=== PATIENT | female | born 1965 | race Caucasian/White ===

== ENCOUNTER 2016-06-07 16:03 | Inpatient (IN) | payer MEDICARE, MEDICAID ==
[~2016-06-07] VITALS: Ht 170.2 cm; Wt 87.5 kg
[2016-06-07] VITALS (174 sets, daily range): BP systolic 96–128; BP diastolic 66–79; PULSE 79–93; TEMP 96.2–97; O2SAT 80–100
[~2016-06-07 16:03] MED LIST: ALESSE PO; AMOXICILLIN 8751 TAB PO; CELEXA40 MG PO; FIBERCON; NAPROSYN500 MG PO; NEXIUM 40MG40 MG PO; NORCO 325 MG-51 TAB PO; OYSTER CAL 500500 MG PO; VALIUM 2MG T2 MG/TAB PO; VITAMIN B11000 MCG/M IM
[2016-06-07 17:17] LABS: MEAN CELL VOLUME 94 fl (80.0-100.0); MEAN CORPUSCULAR HGB CONC 32 g/dl (33.0-37.0); MEAN PLATELET VOLUME 13.4 fl (7.4-10.4); RED BLOOD COUNT 3.92 M/mm3 (4.10-5.30); REDCELL DISTRIBUTION WIDTH-CV 13.1 % (11.5-14.5); WHITE BLOOD COUNT 5.5 K/mm3 (4.8-10.8)
[2016-06-07 17:19] LABS: PROTHROMBIN TIME 11.2 SECONDS (9.7-12.8)
[2016-06-07 17:22] LABS: ADD PATHOLOGY DIFF REVIEW NO; HEMATOCRIT 36.7 % (37.0-47.0); HEMOGLOBIN 11.7 g/dl (12.5-16.0); MEAN CORPUSCULAR HEMOGLOBIN 30 pg (27.0-31.0)
[2016-06-07 17:37] LABS: BAND 38 % (0-10); METAMYELOCYTE 1 % (0-0); NEUTROPHILS 52 % (42.0-75.2); PLATELET ESTIMATE DECREASED (NORMAL); TOTAL CELLS COUNTED 100
[2016-06-07 17:39] LABS: ADJUSTED CALCIUM 9.7 mg/dL (8.4-10.2); ALANINE AMINOTRANSFERASE 92 U/L (9-52); ALBUMIN 3.6 gm/dL (3.5-5.0); ALKALINE PHOSPHATASE 71 U/L (50-136); ANION GAP 6 mmol/L (7-16); BILIRUBIN,TOTAL 0.5 mg/dL (0.0-1.0); BLOOD UREA NITROGEN 31 mg/dL (7-17); CALCIUM 9.4 mg/dL (8.4-10.2); CARBON DIOXIDE 26 mmol/L (22-30); CHLORIDE 109 mmol/L (98-107); CREATININE, serum 0.79 mg/dL (0.52-1.25); GLUCOSE 138 mg/dL (74-106); LIPASE 156 U/L (23-300); POTASSIUM 5.5 mmol/L (3.4-5.0); SODIUM 140 mmol/L (137-145); TOTAL PROTEIN 7.1 gm/dL (6.4-8.2)
[2016-06-07 17:42] LABS: PLATELET COUNT 66 K/mm3 (130-400)
[2016-06-07 18:01] LABS: TROPONIN-I < 0.012 ng/mL (0.000-0.034)
[2016-06-07 18:15] LABS: PH 6 (5-8); URINE APPEARANCE Hazy; URINE BACTERIA None Seen /hpf; URINE BILIRUBIN Negative (NEGATIVE); URINE BLOOD Negative (NEGATIVE); URINE COLOR Yellow; URINE GLUCOSE Negative (NEGATIVE); URINE KETONE Negative (NEGATIVE); URINE RBC 0-2 /hpf; URINE UROBILINOGEN Negative (NEGATIVE); URINE WBC 0-2 /hpf
[2016-06-07] MEDS ORDERED: SRONYX 0.02 MG-1 TAB PO (21:08)
[2016-06-07] MEDS ORDERED: CELEXA40 MG PO (21:09)
[2016-06-07] MEDS ORDERED: TEGRETOL 1100 MG/TAB PO (21:09)
[2016-06-07] MEDS ORDERED: NEXIUM 40MG40 MG PO (21:10)
[2016-06-07] MEDS ORDERED: FIBERCON (21:10)
[2016-06-07] MEDS ORDERED: RISPERDAL 0.5M0.5 MG PO (21:11)
[2016-06-07] MEDS ORDERED: VALIUM 2MG T2 MG/TAB PO (21:11)
[2016-06-07] MEDS ORDERED: CALCIUM-500 5001 CTB PO (21:11)
[2016-06-07] MEDS ORDERED: SENNA-LAX8.6 MG PO (21:12)
[2016-06-07] MEDS ORDERED: CYANOCOBAL1000 MCG/1 IM (21:13)
[2016-06-07] MEDS ORDERED: MEDROL 4MG DOSPA4 MG PO (21:18)
[2016-06-07 22:39] LABS: CREATINE KINASE 78 U/L (30-135)
[2016-06-08] VITALS (1417 sets, daily range): BP systolic 110–120; BP diastolic 69–97; PULSE 64–92; TEMP 96.7–97.1; O2SAT 80–100
[2016-06-08 05:36] LABS: MEAN CELL VOLUME 95 fl (80.0-100.0); MEAN CORPUSCULAR HGB CONC 32 g/dl (33.0-37.0); MEAN PLATELET VOLUME 13.2 fl (7.4-10.4); PLATELET COUNT 78 K/mm3 (130-400); RED BLOOD COUNT 3.68 M/mm3 (4.10-5.30); REDCELL DISTRIBUTION WIDTH-CV 13.1 % (11.5-14.5); WHITE BLOOD COUNT 4.9 K/mm3 (4.8-10.8)
[2016-06-08 05:43] LABS: HEMATOCRIT 34.8 % (37.0-47.0); HEMOGLOBIN 11.1 g/dl (12.5-16.0); MEAN CORPUSCULAR HEMOGLOBIN 30 pg (27.0-31.0)
[2016-06-08 05:50] LABS: CALCIUM 9.2 mg/dL (8.4-10.2); CREATININE, serum 0.9 mg/dL (0.52-1.25); POTASSIUM 4.9 mmol/L (3.4-5.0)
[2016-06-08 13:18] LABS: ADD PATHOLOGY DIFF REVIEW NO
[2016-06-08 13:43] LABS: MEAN CELL VOLUME 95 fl (80.0-100.0); MEAN CORPUSCULAR HGB CONC 31 g/dl (33.0-37.0); MEAN PLATELET VOLUME 13.5 fl (7.4-10.4); RED BLOOD COUNT 3.49 M/mm3 (4.10-5.30); WHITE BLOOD COUNT 5.1 K/mm3 (4.8-10.8)
[2016-06-08 13:47] LABS: HEMATOCRIT 33.3 % (37.0-47.0); HEMOGLOBIN 10.4 g/dl (12.5-16.0); MEAN CORPUSCULAR HEMOGLOBIN 30 pg (27.0-31.0)
[2016-06-08 13:48] LABS: PLATELET COUNT 70 K/mm3 (130-400)
[2016-06-08 14:04] LABS: BAND 1 % (0-10); EOSINOPHIL 2 % (0-4); NEUTROPHILS 72 % (42.0-75.2); TOTAL CELLS COUNTED 100
[2016-06-08 14:05] LABS: ANISOCYTOSIS 1+
[2016-06-09] VITALS (1011 sets, daily range): BP systolic 105–119; BP diastolic 67–87; PULSE 66–74; TEMP 96.8–98.6; O2SAT 78–100
[2016-06-09 09:59] LABS: BASO % 0.3 % (0.0-2.0); EOS # 0.1 (0.0-0.7); EOS % 4.4 % (0-4.0); GRAN # 1.9 (1.4-6.5); GRAN % 60.3 % (42.2-75.2); LYMPH # 0.9 (1.2-3.4); LYMPH % 28.8 % (20.0-51.0); MEAN CELL VOLUME 96 fl (80.0-100.0); MEAN CORPUSCULAR HGB CONC 31 g/dl (33.0-37.0); MEAN PLATELET VOLUME 13.2 fl (7.4-10.4); MONO # 0.2 (0.1-0.6); MONO % 5.9 % (1.7-9.3); RED BLOOD COUNT 3.31 M/mm3 (4.10-5.30); REDCELL DISTRIBUTION WIDTH-CV 13.1 % (11.5-14.5); WHITE BLOOD COUNT 3.2 K/mm3 (4.8-10.8)
[2016-06-09 10:07] LABS: HEMATOCRIT 31.9 % (37.0-47.0); HEMOGLOBIN 9.9 g/dl (12.5-16.0); MEAN CORPUSCULAR HEMOGLOBIN 30 pg (27.0-31.0); PLATELET COUNT 58 K/mm3 (130-400)
[2016-06-09 10:21] LABS: ADJUSTED CALCIUM 9.9 mg/dL (8.4-10.2); ALBUMIN 2.9 gm/dL (3.5-5.0); BILIRUBIN,TOTAL 0.4 mg/dL (0.0-1.0); CREATININE, serum 1.09 mg/dL (0.52-1.25); POTASSIUM 5.2 mmol/L (3.4-5.0)
[2016-06-10 01:03] VITALS: BP 116/68; PULSE 54; TEMP 98.2
[2016-06-10 03:16] VITALS: BP 118/52; PULSE 50; TEMP 98.6
[2016-06-10 09:13] VITALS: BP 127/75; PULSE 53; TEMP 94
[2016-06-10 09:38] LABS: BASO % 0.3 % (0.0-2.0); EOS # 0.1 (0.0-0.7); EOS % 3.8 % (0-4.0); GRAN # 2.4 (1.4-6.5); GRAN % 65.7 % (42.2-75.2); LYMPH # 0.9 (1.2-3.4); LYMPH % 23.9 % (20.0-51.0); MEAN CELL VOLUME 96 fl (80.0-100.0); MEAN CORPUSCULAR HGB CONC 31 g/dl (33.0-37.0); MEAN PLATELET VOLUME 13.3 fl (7.4-10.4); MONO # 0.2 (0.1-0.6); RED BLOOD COUNT 3.26 M/mm3 (4.10-5.30); REDCELL DISTRIBUTION WIDTH-CV 13.1 % (11.5-14.5); WHITE BLOOD COUNT 3.7 K/mm3 (4.8-10.8)
[2016-06-10 09:43] LABS: HEMATOCRIT 31.4 % (37.0-47.0); HEMOGLOBIN 9.8 g/dl (12.5-16.0); MEAN CORPUSCULAR HEMOGLOBIN 30 pg (27.0-31.0); PLATELET COUNT 48 K/mm3 (130-400)
[2016-06-10 10:20] LABS: ALBUMIN 3.3 gm/dL (3.5-5.0); BILIRUBIN,TOTAL 0.3 mg/dL (0.0-1.0); CALCIUM 9.4 mg/dL (8.4-10.2); CREATININE, serum 1.04 mg/dL (0.52-1.25); POTASSIUM 5.2 mmol/L (3.4-5.0); TOTAL PROTEIN 6.2 gm/dL (6.4-8.2)
[2016-06-10 12:51] VITALS: BP 154/95; PULSE 56; TEMP 94
[2016-06-10 16:28] VITALS: BP 147/94; PULSE 58; TEMP 94
[2016-06-10 20:43] VITALS: BP 108/62; PULSE 50; TEMP 98.8
[2016-06-11 04:52] VITALS: BP 115/74; PULSE 74; TEMP 97.7
[2016-06-11 07:36] VITALS: BP 148/88; PULSE 43; TEMP 94
[2016-06-11 09:15] LABS: BASO % 0.2 % (0.0-2.0); EOS # 0.2 (0.0-0.7); EOS % 4.7 % (0-4.0); GRAN % 67.7 % (42.2-75.2); LYMPH % 22.3 % (20.0-51.0); MEAN CELL VOLUME 92 fl (80.0-100.0); MEAN CORPUSCULAR HGB CONC 33 g/dl (33.0-37.0); MEAN PLATELET VOLUME 13.8 fl (7.4-10.4); MONO # 0.2 (0.1-0.6); MONO % 4.9 % (1.7-9.3); RED BLOOD COUNT 3.56 M/mm3 (4.10-5.30); WHITE BLOOD COUNT 4.5 K/mm3 (4.8-10.8)
[2016-06-11 09:23] LABS: HEMATOCRIT 32.8 % (37.0-47.0); HEMOGLOBIN 10.7 g/dl (12.5-16.0); MEAN CORPUSCULAR HEMOGLOBIN 30 pg (27.0-31.0)
[2016-06-11 09:25] LABS: PLATELET COUNT 49 K/mm3 (130-400)
[2016-06-11 09:28] LABS: CALCIUM 9.8 mg/dL (8.4-10.2); CREATININE, serum 1.05 mg/dL (0.52-1.25); POTASSIUM 5.2 mmol/L (3.4-5.0)
[2016-06-11 12:05] VITALS: BP 123/81; PULSE 35; TEMP 93
[2016-06-11 16:47] VITALS: BP 98/53; PULSE 42; TEMP 92
[2016-06-12 00:35] VITALS: BP 107/59; PULSE 64
[2016-06-12 03:44] VITALS: BP 131/86; PULSE 50
[2016-06-12 07:39] VITALS: BP 149/75; PULSE 55; TEMP 94
[2016-06-12 10:52] LABS: MEAN CELL VOLUME 93 fl (80.0-100.0); MEAN CORPUSCULAR HGB CONC 32 g/dl (33.0-37.0); MEAN PLATELET VOLUME 13.3 fl (7.4-10.4); RED BLOOD COUNT 3.43 M/mm3 (4.10-5.30); REDCELL DISTRIBUTION WIDTH-CV 13.2 % (11.5-14.5); WHITE BLOOD COUNT 4.7 K/mm3 (4.8-10.8)
[2016-06-12 10:56] LABS: CALCIUM 9.5 mg/dL (8.4-10.2); CREATININE, serum 0.87 mg/dL (0.52-1.25); POTASSIUM 5.1 mmol/L (3.4-5.0)
[2016-06-12 10:57] LABS: ALBUMIN FRACTION 3.3 g/dL (2.6-4.5); ALBUMIN PERCENTAGE 53.2 % (48.7-61.8); ALPHA 1 FRACTION 0.4 g/dL (0.3-0.5); ALPHA 1 PERCENTAGE 6.1 % (3.4-8.3); ALPHA 2 FRACTION 0.7 g/dL (0.6-1.2); ALPHA 2 PERCENTAGE 11.8 % (8.4-17.5); BETA 1 FRACTION 0.4 g/dL (0.4-0.6); BETA 1 PERCENTAGE 6.3 % (5.4-8.9); BETA 2 FRACTION 0.3 g/dL (0.2-0.5); BETA 2 PERCENTAGE 4.5 % (3.8-7.7); GAMMA FRACTION 1.1 g/dL (0.4-1.7); GAMMA PERCENTAGE 18.1 % (8.1-23.0); SERUM PROTEIN TOTAL 6.2 g/dL (6.1-7.7)
[2016-06-12 11:32] LABS: HEMATOCRIT 31.9 % (37.0-47.0); HEMOGLOBIN 10.2 g/dl (12.5-16.0); MEAN CORPUSCULAR HEMOGLOBIN 30 pg (27.0-31.0)
[2016-06-12 11:33] LABS: ADD PATHOLOGY DIFF REVIEW NO
[2016-06-12 11:50] VITALS: BP 130/77; PULSE 53; TEMP 94
[2016-06-12 12:47] LABS: BAND 11 % (0-10); BASOPHIL 2 % (0-2); NEUTROPHILS 53 % (42.0-75.2); PLATELET ESTIMATE DECREASED (NORMAL); TOTAL CELLS COUNTED 100
[2016-06-12 12:53] LABS: PLATELET COUNT 47 K/mm3 (130-400)
[2016-06-12] MEDS ORDERED: FOLIC ACID 11 MG/TA1 PO (14:18)
[2016-06-12] MEDS ORDERED: LEVOXYL0.05 MG PO (14:18)
[2016-06-13 18:15] LABS: KAPPA FREE LIGHT CHAIN-SERUM 7.71 mg/dL (()); KAPPA LAMBDA RATIO 2.15 (())
== END 2016-06-12 15:38 | disposition home or self-care (01) | DRG 866 ==
LOC: COL.ER 16:03 → MEDICAL 18:39 → ICU 18:39 → MEDICAL 06-09 18:27
PROVIDERS: Emergency Medicine; Internal Medicine
DX: B34.9 Viral infection, unspecified (principal); D61.818 Other pancytopenia; G93.1 Anoxic brain damage, not elsewhere classified; R68.0 Hypothermia, not associated with low environmental temperature; Z87.820 Personal history of traumatic brain injury; E87.5 Hyperkalemia; E86.0 Dehydration; F31.9 Bipolar disorder, unspecified; D64.9 Anemia, unspecified; D69.6 Thrombocytopenia, unspecified; E03.9 Hypothyroidism, unspecified
CPT/HCPCS: 99223-AI; 99232-AI; 99233-AI; 99239; C9113; J0610; J0692; J1650; J1720; J1815; J3370; J7030; J7050; J7120

== ENCOUNTER 2016-06-12 22:33 | Inpatient (IN) | payer MEDICARE, MEDICAID ==
[~2016-06-12] VITALS: Ht 165.1 cm; Wt 75.0 kg
[~2016-06-12 22:33] MED LIST changes: +CALCIUM-500 5001 CTB PO; +CYANOCOBAL1000 MCG/1 IM; +FOLIC ACID 11 MG/TA1 PO; +LEVOXYL0.05 MG PO; +MEDROL 4MG DOSPA4 MG PO; +RISPERDAL 0.5M0.5 MG PO; +SENNA-LAX8.6 MG PO; +SRONYX 0.02 MG-1 TAB PO; +TEGRETOL 1100 MG/TAB PO
[2016-06-12 23:47] LABS: BASO % 0.4 % (0.0-2.0); EOS # 0.3 (0.0-0.7); EOS % 6.5 % (0-4.0); GRAN # 3.7 (1.4-6.5); GRAN % 72.4 % (42.2-75.2); LYMPH # 0.7 (1.2-3.4); LYMPH % 13.4 % (20.0-51.0); MEAN CELL VOLUME 93 fl (80.0-100.0); MEAN CORPUSCULAR HGB CONC 32 g/dl (33.0-37.0); MEAN PLATELET VOLUME 14.2 fl (7.4-10.4); MONO # 0.4 (0.1-0.6); MONO % 7.1 % (1.7-9.3); RED BLOOD COUNT 3.49 M/mm3 (4.10-5.30); WHITE BLOOD COUNT 5.1 K/mm3 (4.8-10.8)
[2016-06-12 23:48] LABS: HEMATOCRIT 32.4 % (37.0-47.0); HEMOGLOBIN 10.4 g/dl (12.5-16.0); MEAN CORPUSCULAR HEMOGLOBIN 30 pg (27.0-31.0); PLATELET COUNT 54 K/mm3 (130-400)
[2016-06-12 23:59] LABS: ADJUSTED CALCIUM 9.8 mg/dL (8.4-10.2); ALBUMIN 3.7 gm/dL (3.5-5.0); BILIRUBIN,TOTAL 0.6 mg/dL (0.0-1.0); CALCIUM 9.6 mg/dL (8.4-10.2); CREATININE, serum 0.84 mg/dL (0.52-1.25); TOTAL PROTEIN 7.2 gm/dL (6.4-8.2)
[2016-06-13] VITALS (189 sets, daily range): BP systolic 119; BP diastolic 67; PULSE 59; TEMP 96.1; O2SAT 75–100
[2016-06-13 00:01] LABS: POTASSIUM 6.6 mmol/L (3.4-5.0)
[2016-06-13 00:29] LABS: THYROID STIMULATING HORMONE 20.4 uIU/mL (0.465-4.680)
[2016-06-13 02:51] LABS: ARTERIAL BLD GAS O2 SATURATION 95.7 % (92-100); ARTERIAL BLD GAS TCO2 CT 26.5; ARTERIAL BLOOD GAS BASE EXCESS -1.2 (-2-2); ARTERIAL BLOOD GAS PHT 7.32 C (7.35-7.45); ARTERIAL BLOOD GAS PO2 91.6 mmHg (80-100); ARTERIAL BLOOD GAS PO2T 91.6 (80-100); ARTERIAL BLOOD GAS pH 7.32 (7.35-7.45); OXYHEMOGLOBIN 94.9 %
[2016-06-13 02:52] LABS: ALLEN TEST NO; ATS? YES
[2016-06-13 03:16] LABS: BASO % 0.3 % (0.0-2.0); EOS # 0.3 (0.0-0.7); EOS % 7.5 % (0-4.0); GRAN # 2.7 (1.4-6.5); LYMPH # 0.7 (1.2-3.4); LYMPH % 17.2 % (20.0-51.0); MEAN CELL VOLUME 93 fl (80.0-100.0); MEAN CORPUSCULAR HGB CONC 32 g/dl (33.0-37.0); MEAN PLATELET VOLUME 13.4 fl (7.4-10.4); MONO # 0.2 (0.1-0.6); MONO % 5.7 % (1.7-9.3); RED BLOOD COUNT 3.14 M/mm3 (4.10-5.30); WHITE BLOOD COUNT 3.9 K/mm3 (4.8-10.8)
[2016-06-13 03:23] LABS: PROTHROMBIN TIME 11.4 SECONDS (9.7-12.8)
[2016-06-13 03:25] LABS: PARTIAL THROMBOPLASTIN TIME 35.6 SECONDS (26.0-37.0)
[2016-06-13 03:27] LABS: ADJUSTED CALCIUM 9.4 mg/dL (8.4-10.2); ALANINE AMINOTRANSFERASE 73 U/L (9-52); ALBUMIN 3.1 gm/dL (3.5-5.0); ALKALINE PHOSPHATASE 71 U/L (50-136); ANION GAP 4 mmol/L (7-16); BILIRUBIN,TOTAL 0.4 mg/dL (0.0-1.0); BLOOD UREA NITROGEN 34 mg/dL (7-17); CALCIUM 8.7 mg/dL (8.4-10.2); CARBON DIOXIDE 26 mmol/L (22-30); CHLORIDE 106 mmol/L (98-107); CREATINE KINASE 37 U/L (30-135); CREATININE, serum 0.85 mg/dL (0.52-1.25); GLUCOSE 112 mg/dL (74-106); MAGNESIUM 1.4 mg/dL (1.6-2.3); PHOSPHOROUS 2.8 mg/dL (2.5-4.5); POTASSIUM 5.3 mmol/L (3.4-5.0); SODIUM 137 mmol/L (137-145); TOTAL PROTEIN 6.2 gm/dL (6.4-8.2)
[2016-06-13 03:32] LABS: HEMATOCRIT 29.1 % (37.0-47.0); HEMOGLOBIN 9.4 g/dl (12.5-16.0); MEAN CORPUSCULAR HEMOGLOBIN 30 pg (27.0-31.0)
[2016-06-13 03:34] LABS: PLATELET COUNT 50 K/mm3 (130-400)
[2016-06-13 03:57] LABS: TROPONIN-I < 0.012 ng/mL (0.000-0.034)
[2016-06-13 03:58] LABS: AMMONIA < 9 umol/L (11-35)
[2016-06-14 02:07] LABS: T3 TOTAL 118 ng/dL (87-178)
[2016-06-15 12:47] LABS: CK total - for Isoenzymes 44 U/L (38 - 176); PROCALCITONIN <0.10 ng/mL (<=0.15)
== END 2016-06-13 05:10 | disposition short-term general hospital (02) | DRG 872 ==
LOC: COL.ER 22:33 → ICU 23:56
PROVIDERS: Emergency Medicine; Internal Medicine
DX: A41.9 Sepsis, unspecified organism (principal); G93.1 Anoxic brain damage, not elsewhere classified; R68.0 Hypothermia, not associated with low environmental temperature; E87.5 Hyperkalemia; D69.6 Thrombocytopenia, unspecified
CPT/HCPCS: J0692; J1720; J1815; J3370; J7030; J7050

== ENCOUNTER 2016-06-17 11:02 | Emergency (ER) | payer MEDICARE, MEDICAID ==
[~2016-06-17] VITALS: Ht 165.1 cm; Wt 77.3 kg
[2016-06-17 12:44] LABS: BASO % 0.3 % (0.0-2.0); EOS % 0.1 % (0-4.0); GRAN # 9.9 (1.4-6.5); GRAN % 91.6 % (42.2-75.2); LYMPH # 0.3 (1.2-3.4); LYMPH % 3.1 % (20.0-51.0); MEAN CELL VOLUME 93 fl (80.0-100.0); MEAN CORPUSCULAR HGB CONC 33 g/dl (33.0-37.0); MEAN PLATELET VOLUME 12.1 fl (7.4-10.4); MONO # 0.5 (0.1-0.6); MONO % 4.3 % (1.7-9.3); PLATELET COUNT 98 K/mm3 (130-400); RED BLOOD COUNT 3.24 M/mm3 (4.10-5.30); REDCELL DISTRIBUTION WIDTH-CV 13.3 % (11.5-14.5); WHITE BLOOD COUNT 10.8 K/mm3 (4.8-10.8)
[2016-06-17 12:50] LABS: HEMATOCRIT 30.1 % (37.0-47.0); HEMOGLOBIN 9.8 g/dl (12.5-16.0); MEAN CORPUSCULAR HEMOGLOBIN 30 pg (27.0-31.0)
[2016-06-17 13:07] LABS: ADJUSTED CALCIUM 9.4 mg/dL (8.4-10.2); ALBUMIN 3.2 gm/dL (3.5-5.0); BILIRUBIN,TOTAL 0.6 mg/dL (0.0-1.0); CALCIUM 8.8 mg/dL (8.4-10.2); CREATININE, serum 0.75 mg/dL (0.52-1.25); TOTAL PROTEIN 6.2 gm/dL (6.4-8.2)
[2016-06-17] MEDS ORDERED: CORTEF5 MG PO (13:26)
[2016-06-17] MEDS ORDERED: SYNTHROID0.125 MG/T PO (13:27)
[2016-06-17 13:37] LABS: THYROID STIMULATING HORMONE 1.74 uIU/mL (0.465-4.680)
[2016-06-17 13:49] LABS: INFLUENZA B NEGATIVE
[2016-06-17 14:56] LABS: PH 5 (5-8); SQUAMOUS EPITHELIAL None Seen /hpf; URINE APPEARANCE Clear; URINE BACTERIA None Seen /hpf; URINE BILIRUBIN Negative (NEGATIVE); URINE BLOOD Negative (NEGATIVE); URINE COLOR Yellow; URINE GLUCOSE Negative (NEGATIVE); URINE KETONE Negative (NEGATIVE); URINE RBC 0-2 /hpf; URINE UROBILINOGEN Negative (NEGATIVE); URINE WBC 0-2 /hpf
[2016-06-17 15:44] LABS: ARTERIAL BLD GAS O2 SATURATION 90.5 % (92-100); ARTERIAL BLD GAS TCO2 CT 27.4; ARTERIAL BLOOD GAS BASE EXCESS -0.5 (-2-2); ARTERIAL BLOOD GAS HCO3 25.9 meq/L (22-26); ARTERIAL BLOOD GAS PHT 7.33 C (7.35-7.45); ARTERIAL BLOOD GAS PO2 64.9 mmHg (80-100); ARTERIAL BLOOD GAS PO2T 64.9 (80-100); ARTERIAL BLOOD GAS pH 7.33 (7.35-7.45); OXYHEMOGLOBIN 89.9 %
[2016-06-17 15:45] LABS: ATS? YES
[2016-06-17 16:03] VITALS: TEMP 96.1
[2016-06-17 17:20] VITALS: BP 106/87; PULSE 62
== END 2016-06-17 17:20 | disposition short-term general hospital (02) ==
LOC: COL.ER 11:02
PROVIDERS: Emergency Medicine
DX: I21.4 Non-ST elevation (NSTEMI) myocardial infarction (principal); J81.1 Chronic pulmonary edema; I50.9 Heart failure, unspecified; E03.5 Myxedema coma; K08.89 Other specified disorders of teeth and supporting structures; R91.8 Other nonspecific abnormal finding of lung field
CPT/HCPCS: J1720; J1940; Q9967

== ENCOUNTER 2017-02-19 16:27 | Observation (INO) | payer MEDICARE, MEDICAID ==
[~2017-02-19] VITALS: Ht 160 cm; Wt 80.4 kg
[~2017-02-19 16:27] MED LIST changes: +CORTEF5 MG PO; +SYNTHROID0.125 MG/T PO
[2017-02-19 17:07] LABS: BASO % 0.5 % (0.0-2.0); EOS # 0.1 (0.0-0.7); EOS % 2.1 % (0-4.0); GRAN # 3.9 (1.4-6.5); LYMPH # 2.1 (1.2-3.4); MEAN CELL VOLUME 93 fl (80.0-100.0); MEAN CORPUSCULAR HGB CONC 32 g/dl (33.0-37.0); MEAN PLATELET VOLUME 11.3 fl (7.4-10.4); MONO # 0.4 (0.1-0.6); MONO % 6.2 % (1.7-9.3); PLATELET COUNT 184 K/mm3 (130-400); RED BLOOD COUNT 3.73 M/mm3 (4.10-5.30); REDCELL DISTRIBUTION WIDTH-CV 11.9 % (11.5-14.5); WHITE BLOOD COUNT 6.6 K/mm3 (4.8-10.8)
[2017-02-19 17:09] LABS: HEMATOCRIT 34.6 % (37.0-47.0); MEAN CORPUSCULAR HEMOGLOBIN 29 pg (27.0-31.0)
[2017-02-19 17:17] LABS: ADJUSTED CALCIUM 8.9 mg/dL (8.4-10.2); ALANINE AMINOTRANSFERASE 24 U/L (9-52); ALBUMIN 3.8 gm/dL (3.5-5.0); ALKALINE PHOSPHATASE 78 U/L (50-136); ANION GAP 10 mmol/L (7-16); BILIRUBIN,TOTAL 0.3 mg/dL (0.0-1.0); BLOOD UREA NITROGEN 25 mg/dL (7-17); CALCIUM 8.7 mg/dL (8.4-10.2); CARBON DIOXIDE 25 mmol/L (22-30); CHLORIDE 103 mmol/L (98-107); CREATININE, serum 1.02 mg/dL (0.52-1.25); GLUCOSE 92 mg/dL (74-106); LIPASE 207 U/L (23-300); POTASSIUM 5.1 mmol/L (3.4-5.0); SODIUM 138 mmol/L (137-145); TOTAL PROTEIN 7.2 gm/dL (6.4-8.2)
[2017-02-19 17:31] LABS: TROPONIN-I < 0.012 ng/mL (0.000-0.034)
[2017-02-19 17:48] LABS: THYROID STIMULATING HORMONE 0.142 uIU/mL (0.465-4.680)
[2017-02-19 20:24] VITALS: BP 113/76; PULSE 60; TEMP 97.8
[2017-02-19 20:33] VITALS: BP 113/76; PULSE 68; TEMP 98.6
[2017-02-19 22:00] VITALS: BP 113/76; PULSE 68; TEMP 98.6
[2017-02-19 23:27] LABS: POTASSIUM 4.6 mmol/L (3.4-5.0)
[2017-02-20] VITALS (7 sets, daily range): BP systolic 107–140; BP diastolic 55–95; PULSE 62–95; TEMP 98.1–98.4
[2017-02-20] MEDS ORDERED: MIRALAX PA17 GM/Dose PO (02:16)
[2017-02-20] MEDS ORDERED: VALIUM 2MG T2 MG/TAB PO (02:16)
[2017-02-20 08:15] LABS: MEAN CELL VOLUME 94 fl (80.0-100.0); MEAN CORPUSCULAR HGB CONC 31 g/dl (33.0-37.0); MEAN PLATELET VOLUME 12.2 fl (7.4-10.4); PLATELET COUNT 176 K/mm3 (130-400); RED BLOOD COUNT 3.77 M/mm3 (4.10-5.30); REDCELL DISTRIBUTION WIDTH-CV 11.9 % (11.5-14.5); WHITE BLOOD COUNT 5.2 K/mm3 (4.8-10.8)
[2017-02-20 08:16] LABS: HEMATOCRIT 35.5 % (37.0-47.0); HEMOGLOBIN 11.1 g/dl (12.5-16.0); MEAN CORPUSCULAR HEMOGLOBIN 29 pg (27.0-31.0)
[2017-02-20 08:36] LABS: ANION GAP 7 mmol/L (7-16); BLOOD UREA NITROGEN 22 mg/dL (7-17); CALCIUM 8.4 mg/dL (8.4-10.2); CARBON DIOXIDE 26 mmol/L (22-30); CHLORIDE 107 mmol/L (98-107); CREATININE, serum 1.03 mg/dL (0.52-1.25); GLUCOSE 72 mg/dL (74-106); POTASSIUM 4.6 mmol/L (3.4-5.0); SODIUM 140 mmol/L (137-145)
[2017-02-20 08:46] LABS: TROPONIN-I < 0.012 ng/mL (0.000-0.034)
== END 2017-02-20 17:45 | disposition home or self-care (01) ==
LOC: COL.ER 16:27 → SURG 18:34
PROVIDERS: Emergency Medicine; Internal Medicine
DX: R07.9 Chest pain, unspecified (principal); E87.5 Hyperkalemia; D64.9 Anemia, unspecified; G40.909 Epilepsy, unspecified, not intractable, without status epilepticus; R53.1 Weakness
CPT/HCPCS: A9502; G0378; G8978-GP; G8979-GP; G8980-GP; J1650; J2060; J2270; J2785; J7030; Q9967

== ENCOUNTER → 2017-02-25 | Outpatient (CLI) | payer MEDICARE, MEDICAID ==
[~2017-02-25] MED LIST changes: +MIRALAX PA17 GM/Dose PO
== END ==
LOC: COL.VAS 09:39
DX: I87.8 Other specified disorders of veins (principal)

== ENCOUNTER → 2017-06-05 | Outpatient (CLI) | payer MEDICARE, MEDICAID | LOC: ZLAB.ENT 15:04 | DX: H92.11 Otorrhea, right ear (principal) ==

== ENCOUNTER 2017-07-13 18:58 | Observation (INO) | payer MEDICARE, MEDICAID ==
[~2017-07-13] VITALS: Ht 162.6 cm; Wt 79.8 kg
[2017-07-13] MEDS ORDERED: VIENVA-28 TABL1 EACH PO (20:56)
[2017-07-13 20:58] LABS: BASO % 0.4 % (0.0-2.0); EOS # 0.2 (0.0-0.7); EOS % 3.4 % (0-4.0); GRAN # 3.7 (1.4-6.5); GRAN % 74.3 % (42.2-75.2); HEMATOCRIT 34.6 % (37.0-47.0); HEMOGLOBIN 10.8 g/dl (12.5-16.0); LYMPH # 0.8 (1.2-3.4); LYMPH % 15.5 % (20.0-51.0); MEAN CELL VOLUME 93 fl (80.0-100.0); MEAN CORPUSCULAR HEMOGLOBIN 29 pg (27.0-31.0); MEAN CORPUSCULAR HGB CONC 31 g/dl (33.0-37.0); MEAN PLATELET VOLUME 12.5 fl (7.4-10.4); MONO # 0.3 (0.1-0.6); MONO % 6.2 % (1.7-9.3); PLATELET COUNT 120 K/mm3 (130-400); RED BLOOD COUNT 3.72 M/mm3 (4.10-5.30); REDCELL DISTRIBUTION WIDTH-CV 13.9 % (11.5-14.5)
[2017-07-13 21:10] LABS: ALBUMIN 3.9 gm/dL (3.5-5.0); BILIRUBIN,TOTAL 0.2 mg/dL (0.0-1.0); CALCIUM 9.2 mg/dL (8.4-10.2); CREATININE, serum 0.91 mg/dL (0.52-1.25); POTASSIUM 5.4 mmol/L (3.4-5.0); TOTAL PROTEIN 7.5 gm/dL (6.4-8.2)
[2017-07-13 21:14] LABS: COLLECTION METHOD CATHETER
[2017-07-13 21:21] LABS: MUCOUS Present /lpf; PH 6 (5-8); URINE APPEARANCE Hazy; URINE BACTERIA None Seen /hpf; URINE BILIRUBIN Negative (NEGATIVE); URINE BLOOD Negative (NEGATIVE); URINE COLOR Yellow; URINE GLUCOSE Negative (NEGATIVE); URINE KETONE Negative (NEGATIVE); URINE LEUKOCYTE ESTERASE Negative (NEGATIVE); URINE NITRATE Negative (NEGATIVE); URINE PROTEIN(semi-quant) Negative (NEGATIVE); URINE RBC 0-2 /hpf; URINE UROBILINOGEN Negative (NEGATIVE)
[2017-07-14] VITALS (364 sets, daily range): BP systolic 101–134; BP diastolic 69–86; PULSE 74–98; TEMP 97.6–100.1; O2SAT 81–99
[2017-07-14 01:40] LABS: PROTHROMBIN TIME 11.5 SECONDS (9.7-12.8)
[2017-07-14 01:51] LABS: ARTERIAL BLD GAS TCO2 CT 29.2; ARTERIAL BLOOD GAS BASE EXCESS 2.2 (-2-2); ARTERIAL BLOOD GAS HCO3 27.7 meq/L (22-26); ARTERIAL BLOOD GAS PCO2 47.2 mmHg (35-45); ARTERIAL BLOOD GAS PO2 79.6 mmHg (80-100); ARTERIAL BLOOD GAS pH 7.39 (7.35-7.45)
[2017-07-14 01:51] LABS: MAGNESIUM 1.5 mg/dL (1.6-2.3); PHOSPHOROUS 3.2 mg/dL (2.5-4.5)
[2017-07-14 12:02] LABS: BASO % 0.2 % (0.0-2.0); GRAN # 4.1 (1.4-6.5); GRAN % 86.5 % (42.2-75.2); LYMPH # 0.6 (1.2-3.4); LYMPH % 11.6 % (20.0-51.0); MEAN CELL VOLUME 92 fl (80.0-100.0); MEAN CORPUSCULAR HGB CONC 32 g/dl (33.0-37.0); MEAN PLATELET VOLUME 12.6 fl (7.4-10.4); MONO # 0.1 (0.1-0.6); MONO % 1.3 % (1.7-9.3); PLATELET COUNT 128 K/mm3 (130-400); RED BLOOD COUNT 3.55 M/mm3 (4.10-5.30); REDCELL DISTRIBUTION WIDTH-CV 13.7 % (11.5-14.5)
[2017-07-14 12:04] LABS: HEMATOCRIT 32.8 % (37.0-47.0); HEMOGLOBIN 10.4 g/dl (12.5-16.0); MEAN CORPUSCULAR HEMOGLOBIN 29 pg (27.0-31.0)
[2017-07-14 12:31] LABS: ALBUMIN 3.5 gm/dL (3.5-5.0); BILIRUBIN,TOTAL 0.2 mg/dL (0.0-1.0); CALCIUM 9.3 mg/dL (8.4-10.2); CREATININE, serum 0.94 mg/dL (0.52-1.25); POTASSIUM 5.3 mmol/L (3.4-5.0); TOTAL PROTEIN 7.1 gm/dL (6.4-8.2)
[2017-07-14 23:26] LABS: CORTISOL, AM (0800) 9 ug/dL (3-20)
[2017-07-15] MEDS ORDERED: AMOXICILLIN 8751 TAB PO (17:18)
[2017-07-16 14:47] LABS: ADRENOCORTICOTROPIC HORMONE <5.0 pg/mL (())
[2017-07-17 09:54] LABS: RENIN,PLASMA <0.6 ng/mL/h (())
== END 2017-07-14 15:40 | disposition home or self-care (01) ==
LOC: COL.ER 18:58 → ICU 23:44
PROVIDERS: Emergency Medicine; Internal Medicine; Nurse Practitioner Family
DX: T68.XXXA Hypothermia, initial encounter (principal); E27.40 Unspecified adrenocortical insufficiency; G40.909 Epilepsy, unspecified, not intractable, without status epilepticus; R47.01 Aphasia; E03.9 Hypothyroidism, unspecified; K21.9 Gastro-esophageal reflux disease without esophagitis; D69.6 Thrombocytopenia, unspecified; E87.5 Hyperkalemia; E83.42 Hypomagnesemia; D64.9 Anemia, unspecified; Z88.1 Allergy status to other antibiotic agents; Z79.52 Long term (current) use of systemic steroids; Z82.49 Family history of ischemic heart disease and other diseases of the circulatory system
CPT/HCPCS: G0378; J2930; J3475; J7030

== ENCOUNTER 2017-07-15 15:36 | Emergency (ER) | payer MEDICARE, MEDICAID ==
[~2017-07-15] VITALS: Ht 152.4 cm; Wt 75.0 kg
[~2017-07-15 15:36] MED LIST changes: +VIENVA-28 TABL1 EACH PO
[2017-07-15 15:40] VITALS: BP 128/70
[2017-07-15 16:51] LABS: BASO % 0.1 % (0.0-2.0); EOS # 0.1 (0.0-0.7); EOS % 0.6 % (0-4.0); GRAN # 7.1 (1.4-6.5); LYMPH # 1.2 (1.2-3.4); LYMPH % 13.6 % (20.0-51.0); MEAN CELL VOLUME 94 fl (80.0-100.0); MEAN CORPUSCULAR HGB CONC 31 g/dl (33.0-37.0); MEAN PLATELET VOLUME 12.6 fl (7.4-10.4); MONO # 0.7 (0.1-0.6); MONO % 7.4 % (1.7-9.3); PLATELET COUNT 113 K/mm3 (130-400); RED BLOOD COUNT 3.36 M/mm3 (4.10-5.30); REDCELL DISTRIBUTION WIDTH-CV 14.2 % (11.5-14.5)
[2017-07-15 16:52] LABS: HEMATOCRIT 31.6 % (37.0-47.0); HEMOGLOBIN 9.8 g/dl (12.5-16.0); MEAN CORPUSCULAR HEMOGLOBIN 29 pg (27.0-31.0)
[2017-07-15 16:55] LABS: COLLECTION METHOD CLEAN CATCH
[2017-07-15 17:04] LABS: ALBUMIN 3.8 gm/dL (3.5-5.0); BILIRUBIN,TOTAL 0.2 mg/dL (0.0-1.0); C-REACTIVE PROTEIN 3.7 mg/dL (0.0-0.9); CALCIUM 9.1 mg/dL (8.4-10.2); CREATININE, serum 0.92 mg/dL (0.52-1.25); POTASSIUM 4.6 mmol/L (3.4-5.0); TOTAL PROTEIN 7.3 gm/dL (6.4-8.2)
[2017-07-15] MEDS ORDERED: AMOXICILLIN 8751 TAB PO (17:18)
[2017-07-15 17:45] LABS: MUCOUS Present /lpf; PH 5 (5-8); SQUAMOUS EPITHELIAL None Seen /hpf; URINE APPEARANCE Clear; URINE BACTERIA None Seen /hpf; URINE BILIRUBIN Negative (NEGATIVE); URINE BLOOD Negative (NEGATIVE); URINE COLOR Yellow; URINE GLUCOSE Negative (NEGATIVE); URINE KETONE Negative (NEGATIVE); URINE LEUKOCYTE ESTERASE Negative (NEGATIVE); URINE NITRATE Negative (NEGATIVE); URINE PROTEIN(semi-quant) Negative (NEGATIVE); URINE RBC 0-2 /hpf; URINE UROBILINOGEN Negative (NEGATIVE)
[2017-07-15 18:23] VITALS: PULSE 61; TEMP 94.2
== END 2017-07-15 18:24 | disposition home or self-care (01) ==
LOC: COL.ER 15:36
PROVIDERS: Family Medicine
DX: E23.0 Hypopituitarism (principal); T68.XXXA Hypothermia, initial encounter; K04.7 Periapical abscess without sinus
CPT/HCPCS: J1100

== ENCOUNTER 2017-07-18 02:25 | Observation (INO) | payer MEDICARE, MEDICAID ==
[~2017-07-18] VITALS: Ht 162.6 cm; Wt 68.2 kg
[2017-07-18] VITALS (8 sets, daily range): BP systolic 85–114; BP diastolic 40–59; PULSE 60–67; TEMP 96.1–98.3
[2017-07-18 02:46] LABS: BASO % 0.4 % (0.0-2.0); EOS # 0.3 (0.0-0.7); EOS % 5.2 % (0-4.0); GRAN # 2.7 (1.4-6.5); GRAN % 49.2 % (42.2-75.2); LYMPH % 37.2 % (20.0-51.0); MEAN CELL VOLUME 93 fl (80.0-100.0); MEAN CORPUSCULAR HGB CONC 32 g/dl (33.0-37.0); MONO # 0.4 (0.1-0.6); MONO % 7.6 % (1.7-9.3); PLATELET COUNT 129 K/mm3 (130-400); RED BLOOD COUNT 3.58 M/mm3 (4.10-5.30); REDCELL DISTRIBUTION WIDTH-CV 13.9 % (11.5-14.5)
[2017-07-18 02:53] LABS: HEMATOCRIT 33.3 % (37.0-47.0); HEMOGLOBIN 10.6 g/dl (12.5-16.0); MEAN CORPUSCULAR HEMOGLOBIN 30 pg (27.0-31.0)
[2017-07-18 03:01] LABS: ALBUMIN 3.6 gm/dL (3.5-5.0); BILIRUBIN,TOTAL 0.2 mg/dL (0.0-1.0); CALCIUM 8.9 mg/dL (8.4-10.2); POTASSIUM 4.1 mmol/L (3.4-5.0)
[2017-07-18 03:33] LABS: THYROID STIMULATING HORMONE 4.18 uIU/mL (0.465-4.680)
[2017-07-18] MEDS ORDERED: LEVOXYL0.088 MG PO (04:38)
[2017-07-18 06:38] LABS: COLLECTION METHOD CATHETER
[2017-07-18 06:44] LABS: PH 6 (5-8); SQUAMOUS EPITHELIAL 0-2 /hpf; URINE APPEARANCE Clear; URINE BACTERIA None Seen /hpf; URINE BILIRUBIN Negative (NEGATIVE); URINE BLOOD Negative (NEGATIVE); URINE COLOR Yellow; URINE GLUCOSE Negative (NEGATIVE); URINE KETONE Negative (NEGATIVE); URINE LEUKOCYTE ESTERASE Negative (NEGATIVE); URINE NITRATE Negative (NEGATIVE); URINE PROTEIN(semi-quant) Negative (NEGATIVE); URINE RBC 0-2 /hpf; URINE UROBILINOGEN Negative (NEGATIVE)
[2017-07-19] VITALS: BP 83/45; PULSE 64; TEMP 97.6
[2017-07-19 04:46] VITALS: BP 117/64
[2017-07-19 06:41] LABS: BASO % 0.2 % (0.0-2.0); EOS % 0.4 % (0-4.0); GRAN # 3.8 (1.4-6.5); GRAN % 76.1 % (42.2-75.2); LYMPH # 0.9 (1.2-3.4); LYMPH % 18.7 % (20.0-51.0); MEAN CELL VOLUME 94 fl (80.0-100.0); MEAN CORPUSCULAR HGB CONC 31 g/dl (33.0-37.0); MEAN PLATELET VOLUME 12.5 fl (7.4-10.4); MONO # 0.2 (0.1-0.6); MONO % 4.2 % (1.7-9.3); PLATELET COUNT 141 K/mm3 (130-400); RED BLOOD COUNT 3.27 M/mm3 (4.10-5.30); REDCELL DISTRIBUTION WIDTH-CV 13.8 % (11.5-14.5)
[2017-07-19 06:48] LABS: CALCIUM 8.6 mg/dL (8.4-10.2); CREATININE, serum 0.97 mg/dL (0.52-1.25); POTASSIUM 4.3 mmol/L (3.4-5.0)
[2017-07-19 06:54] LABS: HEMATOCRIT 30.7 % (37.0-47.0); HEMOGLOBIN 9.5 g/dl (12.5-16.0); MEAN CORPUSCULAR HEMOGLOBIN 29 pg (27.0-31.0)
[2017-07-19] MEDS ORDERED: CORTEF 10MG TAB10 MG PO (09:06)
[2017-07-19 09:36] VITALS: BP 117/64; PULSE 64; TEMP 97.6
== END 2017-07-19 11:13 | disposition home or self-care (01) ==
LOC: COL.ER 02:25 → SURG 04:51
PROVIDERS: Emergency Medicine; Nurse Practitioner Family
DX: T68.XXXA Hypothermia, initial encounter (principal); R47.01 Aphasia; G40.909 Epilepsy, unspecified, not intractable, without status epilepticus; D69.6 Thrombocytopenia, unspecified; E27.40 Unspecified adrenocortical insufficiency; E03.9 Hypothyroidism, unspecified; K21.9 Gastro-esophageal reflux disease without esophagitis; D64.9 Anemia, unspecified; Z88.1 Allergy status to other antibiotic agents; Z79.52 Long term (current) use of systemic steroids; Z87.820 Personal history of traumatic brain injury; Z82.49 Family history of ischemic heart disease and other diseases of the circulatory system
CPT/HCPCS: G0378; G8978-GP; G8979-GP; J1720; J2543; J7030

== ENCOUNTER 2018-04-04 01:58 | Emergency (ER) | payer MEDICARE, MEDICAID ==
[~2018-04-04] VITALS: Ht 165.1 cm; Wt 86.4 kg
[~2018-04-04 01:58] MED LIST changes: +CORTEF 10MG TAB10 MG PO; +LEVOXYL0.088 MG PO
[2018-04-04 02:11] VITALS: BP 138/72; TEMP 98.8
[2018-04-04 04:11] VITALS: PULSE 72
== END 2018-04-04 04:23 | disposition home or self-care (01) ==
LOC: COL.ER 01:58
DX: S01.81XA Laceration without foreign body of other part of head, initial encounter (principal); E03.9 Hypothyroidism, unspecified; Z23 Encounter for immunization; W01.198A Fall on same level from slipping, tripping and stumbling with subsequent striking against other object, initial encounter

== ENCOUNTER 2018-08-10 21:36 | Emergency (ER) | payer MEDICARE, MEDICAID ==
[~2018-08-10] VITALS: Ht 165.1 cm; Wt 78.2 kg
[2018-08-10] MEDS ORDERED: VIENVA-28 TABL1 EACH PO (22:11)
[2018-08-10] MEDS ORDERED: CORTEF5 MG PO (22:16)
[2018-08-10 22:49] LABS: COLLECTION METHOD CATHETER
[2018-08-10 22:52] LABS: BASO % 0.3 % (0.0-2.0); EOS # 0.1 (0.0-0.7); EOS % 0.9 % (0-4.0); GRAN # 2.9 (1.4-6.5); GRAN % 49.2 % (42.2-75.2); HEMOGLOBIN 11.5 g/dl (12.5-16.0); LYMPH # 2.5 (1.2-3.4); LYMPH % 43.4 % (20.0-51.0); MEAN CELL VOLUME 95 fl (80.0-100.0); MEAN CORPUSCULAR HEMOGLOBIN 30 pg (27.0-31.0); MEAN CORPUSCULAR HGB CONC 32 g/dl (33.0-37.0); MEAN PLATELET VOLUME 10.6 fl (7.4-10.4); MONO # 0.3 (0.1-0.6); MONO % 5.7 % (1.7-9.3); PLATELET COUNT 172 K/mm3 (130-400); RED BLOOD COUNT 3.81 M/mm3 (4.10-5.30); REDCELL DISTRIBUTION WIDTH-CV 11.9 % (11.5-14.5)
[2018-08-10 22:53] LABS: HEMATOCRIT 36.3 % (37.0-47.0)
[2018-08-10 22:58] LABS: MUCOUS Present /lpf; PH 8 (5-8); SQUAMOUS EPITHELIAL None Seen /hpf; URINE APPEARANCE Clear; URINE BACTERIA None Seen /hpf; URINE BILIRUBIN Negative (NEGATIVE); URINE BLOOD Negative (NEGATIVE); URINE COLOR Straw; URINE GLUCOSE Negative (NEGATIVE); URINE KETONE Negative (NEGATIVE); URINE LEUKOCYTE ESTERASE Negative (NEGATIVE); URINE NITRATE Negative (NEGATIVE); URINE PROTEIN(semi-quant) Negative (NEGATIVE); URINE RBC None Seen /hpf; URINE UROBILINOGEN Negative (NEGATIVE)
[2018-08-10 23:01] VITALS: TEMP 97.9
[2018-08-10 23:10] LABS: ALBUMIN 3.5 gm/dL (3.5-5.0); BILIRUBIN,TOTAL 0.1 mg/dL (0.0-1.0); CALCIUM 8.9 mg/dL (8.4-10.2); CREATININE, serum 0.99 mg/dL (0.52-1.25); POTASSIUM 4.3 mmol/L (3.4-5.0); TOTAL PROTEIN 6.7 gm/dL (6.4-8.2)
[2018-08-11 00:32] VITALS: BP 140/74; PULSE 64
== END 2018-08-11 00:34 | disposition home or self-care (01) ==
LOC: COL.ER 21:36
PROVIDERS: Emergency Medicine
DX: J06.9 Acute upper respiratory infection, unspecified (principal); G40.909 Epilepsy, unspecified, not intractable, without status epilepticus; E03.9 Hypothyroidism, unspecified; K21.9 Gastro-esophageal reflux disease without esophagitis; E27.40 Unspecified adrenocortical insufficiency; D69.6 Thrombocytopenia, unspecified; Z79.51 Long term (current) use of inhaled steroids; Z90.49 Acquired absence of other specified parts of digestive tract; Z87.820 Personal history of traumatic brain injury

== ENCOUNTER 2018-08-20 19:51 | Emergency (ER) | payer MEDICARE, MEDICAID ==
[2018-08-20 19:57] VITALS: BP 136/90; TEMP 97.9
[2018-08-20 22:10] VITALS: PULSE 89
== END 2018-08-20 22:10 | disposition home or self-care (01) ==
LOC: COL.ER 19:51
DX: S01.81XA Laceration without foreign body of other part of head, initial encounter (principal); W22.8XXA Striking against or struck by other objects, initial encounter; Y92.009 Unspecified place in unspecified non-institutional (private) residence as the place of occurrence of the external cause

== ENCOUNTER 2019-03-01 11:42 | Day surgery (SDC) | payer MEDICARE, MEDICAID ==
[~2019-03-01] VITALS: Ht 160 cm; Wt 74.5 kg
[2019-03-01] MEDS ORDERED: VIENVA-28 TABL1 EACH PO (12:35)
[2019-03-01] MEDS ORDERED: TEGRETOL 1100 MG/TAB PO (12:36)
[2019-03-01] MEDS ORDERED: FIBERCON PO (12:38)
[2019-03-01] MEDS ORDERED: CALCIUM 600MG+D1 TAB PO (12:39)
[2019-03-01] MEDS ORDERED: CORTEF5 MG PO ×2 (12:41→12:48)
[2019-03-01] MEDS ORDERED: NEXIUM 40MG40 MG PO (12:44)
[2019-03-01 12:49] VITALS: BP 118/70; PULSE 71; TEMP 98.6
--- NOTE | 2019-03-01 14:36 | NUR ---
IV WILL BE STARTED IN OR IV FLUIDS,IV ANTIBIOTIC AND PEPCID IV WILL BE GIVEN IN OR.
[2019-03-01 16:20] VITALS: BP 145/72; PULSE 71; TEMP 97.3
--- NOTE | 2019-03-01 16:20 | NUR ---
TO RM 7 PER CART FROM PACU. CONTINUED ON ISOLATION ON ADMISSION. DRIED BLOOD NOTED ON LIPS- NO ACTIVE BLEEDING NOTED. PATIENT FIGITING WITH DRESSING OVER IV. DISCONTINUED IV AND PLACED PRESSURE AND NEW COBAN DRSSING WHICH PATIENT PULLED OFF. HAD TO GENTLY HOLD THE ARM DOWN TO GET A B/P ON RIGHT ARM.
[2019-03-01 16:35] VITALS: BP 126/81; PULSE 68; TEMP 97.8
--- NOTE | 2019-03-01 16:35 | NUR ---
PATIENT PULLED OFF B/P CUFF AND SISTER ASSISTED HER DRESSED PRESCRIPTIONS CALLED TO [facility].
[2019-03-01] MEDS ORDERED: IBU800 M1 PO (16:44)
[2019-03-01] MEDS ORDERED: AMOXICILLIN875 MG PO (16:44)
[2019-03-01] MEDS ORDERED: PERIDEX (CHLOR480 ML MM (16:44)
[2019-03-01] MEDS ORDERED: ULTRAM 50MG TAB50 MG PO (16:45)
--- NOTE | 2019-03-01 16:55 | NUR ---
SISTER RECEIVED DISCHARGE INSTRUCTIONS AND VERBALIZED UNDERSTANDING.
--- NOTE | 2019-03-01 17:08 | NUR ---
DISCHARGED PER WC BY NURSING STAFF TO PRIVATE CAR IN CARE OF SISTER FEDERICO
--- NOTE | 2019-03-01 17:13 | NUR ---
RECEIVED AMOXICILLIN 875MG BID X 7 DAYS
== END 2019-03-01 17:09 | disposition home or self-care (01) ==
LOC: SDCO 11:42
DX: K02.9 Dental caries, unspecified (principal); E03.9 Hypothyroidism, unspecified; G31.84 Mild cognitive impairment of uncertain or unknown etiology; F79 Unspecified intellectual disabilities; F31.9 Bipolar disorder, unspecified; E27.40 Unspecified adrenocortical insufficiency; K21.9 Gastro-esophageal reflux disease without esophagitis; D64.9 Anemia, unspecified; Z79.52 Long term (current) use of systemic steroids; Z88.1 Allergy status to other antibiotic agents; Z88.2 Allergy status to sulfonamides; Z86.73 Personal history of transient ischemic attack (TIA), and cerebral infarction without residual deficits
CPT/HCPCS: J0295; J2405; J2704; J3010

== ENCOUNTER 2019-04-07 19:00 | Emergency (ER) | payer MEDICARE, MEDICAID ==
[~2019-04-07] VITALS: Ht 167.6 cm; Wt 75.9 kg
[~2019-04-07 19:00] MED LIST changes: +AMOXICILLIN875 MG PO; +CALCIUM 600MG+D1 TAB PO; +FIBERCON PO; +IBU800 M1 PO; +PERIDEX (CHLOR480 ML MM; +ULTRAM 50MG TAB50 MG PO
[2019-04-07 19:07] VITALS: BP 132/79; TEMP 98.9
[2019-04-07 21:12] VITALS: PULSE 87
== END 2019-04-07 21:12 | disposition home or self-care (01) ==
LOC: COL.ER 19:00
DX: S01.01XA Laceration without foreign body of scalp, initial encounter (principal); W19.XXXA Unspecified fall, initial encounter; W22.8XXA Striking against or struck by other objects, initial encounter; Y92.009 Unspecified place in unspecified non-institutional (private) residence as the place of occurrence of the external cause

== ENCOUNTER 2019-04-13 10:00 | Emergency (ER) | payer MEDICARE, MEDICAID ==
[~2019-04-13] VITALS: Ht 167.6 cm; Wt 73.6 kg
[2019-04-13 10:16] VITALS: TEMP 98.1
[2019-04-13 13:03] VITALS: BP 122/71; PULSE 79
== END 2019-04-13 13:07 | disposition home or self-care (01) ==
LOC: COL.ER 10:00
DX: S01.81XA Laceration without foreign body of other part of head, initial encounter (principal); R40.2412 Glasgow coma scale score 13-15, at arrival to emergency department; W19.XXXA Unspecified fall, initial encounter; Y92.129 Unspecified place in nursing home as the place of occurrence of the external cause

== ENCOUNTER 2020-01-19 21:33 | Emergency (ER) | payer MEDICARE, MEDICAID ==
[~2020-01-19] VITALS: Ht 167.6 cm; Wt 78.2 kg
[2020-01-19 21:40] VITALS: BP 128/83; TEMP 98.8
[2020-01-19] MEDS ORDERED: LASIX 20MG TABL20 MG PO (22:04)
[2020-01-19] MEDS ORDERED: FIBERCON (22:05)
[2020-01-20 00:14] VITALS: PULSE 74
== END 2020-01-20 00:22 | disposition home or self-care (01) ==
LOC: COL.ER 21:33
DX: S01.81XA Laceration without foreign body of other part of head, initial encounter (principal); W22.8XXA Striking against or struck by other objects, initial encounter
CPT/HCPCS: J2405; J7030

== ENCOUNTER 2022-06-27 06:33 | Observation (INO) | payer MEDICARE, MEDICAID ==
[~2022-06-27] VITALS: Wt 85.5 kg
[~2022-06-27 06:33] MED LIST changes: +LASIX 20MG TABL20 MG PO
[2022-06-27 08:06] LABS: HEMOGLOBIN 10.9 g/dl (12.5-16.0); MEAN CELL VOLUME 93 fl (80.0-100.0); MEAN CORPUSCULAR HEMOGLOBIN 31 pg (27-31); MEAN CORPUSCULAR HGB CONC 33 g/dl (33.0-37.0); MEAN PLATELET VOLUME 12.6 fl (7.4-10.4); PLATELET COUNT 91 K/mm3 (130-400); RED BLOOD COUNT 3.57 M/mm3 (4.10-5.30); REDCELL DISTRIBUTION WIDTH-CV 13.1 % (11.5-14.5)
[2022-06-27 08:11] LABS: COLLECTION METHOD CATHETER
[2022-06-27 08:12] LABS: HEMATOCRIT 33.3 % (37.0-47.0)
[2022-06-27 08:14] LABS: ALBUMIN 3.6 gm/dL (3.5-5.0); BILIRUBIN,TOTAL 0.2 mg/dL (0.2-1.2); CALCIUM 9.7 mg/dL (8.4-10.2); CREATININE, serum 1.2 mg/dL (0.57-1.11); POTASSIUM 5.5 mmol/L (3.5-4.5); TOTAL PROTEIN 6.9 gm/dL (6.2-8.1)
[2022-06-27 08:16] LABS: BAND 18 % (0-10); EOSINOPHIL 1 % (0-4); LYMPHOCYTE 8 % (20.0-51.0); NEUTROPHILS 67 % (42.0-75.2); PLATELET ESTIMATE NORMAL (NORMAL)
[2022-06-27 08:25] LABS: URINE APPEARANCE Hazy (CLEAR/HAZY); URINE COLOR Yellow (YELLOW)
[2022-06-27 08:26] LABS: PH 7.5 (5.0-8.5); URINE BLOOD Negative (NEGATIVE); URINE GLUCOSE Negative (NEGATIVE); URINE KETONE Negative (NEGATIVE); URINE NITRATE Negative (NEGATIVE); URINE PROTEIN(semi-quant) Negative (NEGATIVE); URINE UROBILINOGEN 0.2 E.U/dL (0.2-1.0)
[2022-06-27 08:28] LABS: SQUAMOUS EPITHELIAL 0-2 /hpf (0-10); URINE BACTERIA Rare /hpf (NONE SEEN); URINE RBC 0-2 /hpf (0-2)
[2022-06-27] MEDS ORDERED: SYNTHROID0.05 MG/TA PO (10:55)
[2022-06-27] MEDS ORDERED: FIBERCON (10:55)
[2022-06-27] MEDS ORDERED: MOBIC 7.5MG7.5 MG PO (10:56)
[2022-06-27 12:06] VITALS: BP 105/56; PULSE 74; TEMP 98.3
[2022-06-27] MEDS ORDERED: NEXIUM 20MG20 MG PO (12:14)
--- NOTE | 2022-06-27 15:00 | NUR ---
ATTEMPTED BREATHING TX AND EKG PATIENT COMBATIVE
[2022-06-27 16:33] VITALS: BP 136/83; PULSE 67; TEMP 97.5
--- NOTE | 2022-06-27 19:08 | NUR ---
Pt had uneventful day after arriving to the floor. She is alert, speaks some words that are legible. Breathing is even and unlabored on RA. Does not appear to be in any pain. IVF infusing into RAC. Pt set up and ate meals independently, no s/sx's of aspiration. Took pills well crushed in applesauce. Pure wick in place, pt did have incontinent episode of urine. Assisted her to the restroom with 1A. Fall precautions in place. Call light within reach.
[2022-06-27 20:01] VITALS: BP 124/90; PULSE 65; TEMP 97.7
[2022-06-28 01:10] VITALS: BP 110/56; PULSE 56; TEMP 98
[2022-06-28 04:30] VITALS: BP 120/68; PULSE 73; TEMP 97.5
[2022-06-28 06:21] LABS: BASO % 0.6 % (0.0-2.0); EOS # 0.1 K/mm3 (0.0-0.7); EOS % 1.6 % (0.0-4.0); GRAN # 1.6 K/mm3 (1.4-6.5); GRAN % 49.1 % (42.2-75.2); HEMOGLOBIN 10.5 g/dl (12.5-16.0); LYMPH # 1.1 K/mm3 (1.2-3.4); LYMPH % 34.8 % (20.0-51.0); MEAN CELL VOLUME 96 fl (80.0-100.0); MEAN CORPUSCULAR HEMOGLOBIN 30 pg (27-31); MEAN CORPUSCULAR HGB CONC 32 g/dl (33.0-37.0); MEAN PLATELET VOLUME 12.3 fl (7.4-10.4); MONO # 0.4 K/mm3 (0.1-0.6); MONO % 13.6 % (1.7-9.3); PLATELET COUNT 76 K/mm3 (130-400); RED BLOOD COUNT 3.45 M/mm3 (4.10-5.30); REDCELL DISTRIBUTION WIDTH-CV 13.1 % (11.5-14.5)
[2022-06-28 06:43] LABS: CALCIUM 9.4 mg/dL (8.4-10.2); CREATININE, serum 1.05 mg/dL (0.57-1.11); POTASSIUM 4.6 mmol/L (3.5-4.5)
--- NOTE | 2022-06-28 07:03 | NUR ---
THIS PATIENT HAD AN EVENTFUL NIGHT. THE PATIENT PULLED OUT 2 IV'S. BOTH TIMES IV WAS REPLACED BACK INTO THE RIGHT AC. NO OTHER CONCERNS WITH THIS PATIENT. REPORT GIVEN TO LINDA DIAZ.
[2022-06-28 08:12] VITALS: BP 112/65; PULSE 86; TEMP 97.5
[2022-06-28] MEDS ORDERED: TAMIFLU 75MG75 MG PO (08:41)
--- NOTE | 2022-06-28 12:41 | NUR ---
Shift assessment performed. Scheduled medications given. VSS. Patient alert, but only partially oriented. No s/s of pain or discomfort at this time. Patient up to bedside neel alfaro performed. Patient deemed fit for discharge back to [facility]. Paperwork discussed with LINDA Cancino. IV DC'd, catheter intact, no signs of phlebitis. Patient escorted from building escorted by [facility] staff.
--- NOTE | 2022-06-28 14:32 | NUR ---
Track Welder contacted patient's guardian/sister, Eusebia (ph#[phone]) to discuss discharge planning. Patient lives in a senior care that is managed by [facility]. Patient's medications are managed through [facility] and she receives full care for ADLS. Patient uses a walker and wheelchair for ambulation. Patient's sisters, Eusebia and Jennifer are co-guardians. Patient will return to [facility] at time of discharge. ONEL spoke with nursing staff from [facility] at the nurses station and they will be transporting patient back to [facility]. ONEL updated Eusebia on transport. ONEL faxed discharge orders and updates to [facility] nursing. Discharge Plan: [facility]
== END 2022-06-28 12:15 | disposition home or self-care (01) ==
LOC: COL.ER 06:33 → MEDICAL 10:41
PROVIDERS: Emergency Medicine; Physician Assistant; ADMIT Student in an Organized Health Care Education/Training Program
DX: J10.1 Influenza due to other identified influenza virus with other respiratory manifestations (principal); E87.1 Hypo-osmolality and hyponatremia; E87.5 Hyperkalemia; E27.40 Unspecified adrenocortical insufficiency; G40.909 Epilepsy, unspecified, not intractable, without status epilepticus; E03.9 Hypothyroidism, unspecified; G93.1 Anoxic brain damage, not elsewhere classified; R47.01 Aphasia; Z20.822 Contact with and (suspected) exposure to COVID-19; E16.2 Hypoglycemia, unspecified; K59.00 Constipation, unspecified; D64.9 Anemia, unspecified; D69.6 Thrombocytopenia, unspecified; F32.A Depression, unspecified; K21.9 Gastro-esophageal reflux disease without esophagitis; Z79.890 Hormone replacement therapy; Z79.899 Other long term (current) drug therapy; Z89.421 Acquired absence of other right toe(s)
CPT/HCPCS: G0378; J1720; J7120; J7121

== ENCOUNTER 2022-08-01 09:12 | Inpatient (IN) | payer MEDICARE, MEDICAID ==
[2022-08-01] VITALS (395 sets, daily range): BP systolic 104–130; BP diastolic 73–86; PULSE 74–80; TEMP 97.9; O2SAT 81–99
[~2022-08-01] VITALS: Ht 167.6 cm; Wt 83.8 kg
[~2022-08-01 09:12] MED LIST changes: +MOBIC 7.5MG7.5 MG PO; +NEXIUM 20MG20 MG PO; +SYNTHROID0.05 MG/TA PO; +TAMIFLU 75MG75 MG PO
[2022-08-01 09:53] LABS: BASO % 0.3 % (0.0-2.0); GRAN # 12.1 K/mm3 (1.4-6.5); GRAN % 88.2 % (42.2-75.2); HEMOGLOBIN 11.1 g/dl (12.5-16.0); LYMPH # 0.7 K/mm3 (1.2-3.4); LYMPH % 4.8 % (20.0-51.0); MEAN CELL VOLUME 94 fl (80.0-100.0); MEAN CORPUSCULAR HEMOGLOBIN 30 pg (27-31); MEAN CORPUSCULAR HGB CONC 32 g/dl (33.0-37.0); MEAN PLATELET VOLUME 9.9 fl (7.4-10.4); MONO # 0.8 K/mm3 (0.1-0.6); PLATELET COUNT 294 K/mm3 (130-400); RED BLOOD COUNT 3.68 M/mm3 (4.10-5.30); REDCELL DISTRIBUTION WIDTH-CV 12.7 % (11.5-14.5)
[2022-08-01 09:55] LABS: HEMATOCRIT 34.5 % (37.0-47.0)
[2022-08-01 10:17] LABS: ALANINE AMINOTRANSFERASE 69 U/L (0-55); ALBUMIN 3.1 gm/dL (3.5-5.0); ALKALINE PHOSPHATASE 143 U/L (40-150); ANION GAP 12 mmol/L (7-16); AST,SGOT 90 U/L (5-34); BILIRUBIN,TOTAL 0.6 mg/dL (0.2-1.2); BLOOD UREA NITROGEN 23 mg/dL (10-20); CALCIUM 9.2 mg/dL (8.4-10.2); CARBON DIOXIDE 23 mmol/L (22-29); CHLORIDE 100 mmol/L (98-107); CREATININE, serum 1.63 mg/dL (0.57-1.11); GLUCOSE 134 mg/dL (70-99); POTASSIUM 4.7 mmol/L (3.5-4.5); SODIUM 135 mmol/L (136-145); TOTAL PROTEIN 7.3 gm/dL (6.2-8.1)
[2022-08-01 10:26] LABS: TROPONIN-I < 0.010 ng/mL (0.00-0.033)
[2022-08-01 11:41] LABS: COLLECTION METHOD CATHETER
[2022-08-01 11:57] LABS: PH 5.5 (5.0-8.5); URINE APPEARANCE Hazy (CLEAR/HAZY); URINE BLOOD TRACE-INTACT (NEGATIVE); URINE COLOR Yellow (YELLOW); URINE GLUCOSE Negative (NEGATIVE); URINE KETONE TRACE (NEGATIVE); URINE NITRATE Negative (NEGATIVE); URINE PROTEIN(semi-quant) 2+ (NEGATIVE)
[2022-08-01 12:09] LABS: MUCOUS Present (NOT PRESENT); SQUAMOUS EPITHELIAL 0-2 /hpf (0-10); URINE BACTERIA Rare /hpf (NONE SEEN)
[2022-08-01 12:28] LABS: INR 1.2 (0.8-3.0); PROTHROMBIN TIME 14.3 SECONDS (9.7-12.8)
[2022-08-01] MEDS ORDERED: MOBIC 7.5MG7.5 MG PO ×2 (12:35→12:43)
[2022-08-01] MEDS ORDERED: CYANOCOBAL1000 MCG/M IM (18:13)
--- NOTE | 2022-08-01 19:05 | NUR ---
PT TO THE UNIT AT 1716. PT ASSISTED TO ICU COT AND PLACED ON MONITORING. PT IS AWAKE. ACCORDING TO SISTER AND ROSS NURSE PT IS AT HER BASELINE FOR COMMUNICATION. PT USES ONE TO TWO WORDS AT A TIME FOR COMMUNICATION. PT ENJOYS TV, COLORING AND HER BABY DOLL. USES WHEELCHAIR TO GET A ROUND BUT IS ABLE TO STAND AND PIVOT TO USE BEDSIDE COMMODE. PT DOES USE BRIEFS AT [facility] AND NEEDS TOILETED OR TO HAVE BRIEF CHANGED EVERY TWO HOURS. REPORT GIVEN TO LINDA ROMERO
[2022-08-02] VITALS (745 sets, daily range): BP systolic 94–107; BP diastolic 58–61; PULSE 62–67; TEMP 97.8–98.4; O2SAT 83–97
[2022-08-02 06:00] LABS: MEAN CELL VOLUME 94 fl (80.0-100.0); MEAN CORPUSCULAR HGB CONC 32 g/dl (33.0-37.0); MEAN PLATELET VOLUME 9.5 fl (7.4-10.4); PLATELET COUNT 267 K/mm3 (130-400); RED BLOOD COUNT 2.82 M/mm3 (4.10-5.30); REDCELL DISTRIBUTION WIDTH-CV 12.6 % (11.5-14.5)
[2022-08-02 06:09] LABS: HEMATOCRIT 26.6 % (37.0-47.0); HEMOGLOBIN 8.5 g/dl (12.5-16.0); MEAN CORPUSCULAR HEMOGLOBIN 30 pg (27-31)
[2022-08-02 06:18] LABS: ALBUMIN 2.2 gm/dL (3.5-5.0); BILIRUBIN,TOTAL 0.5 mg/dL (0.2-1.2); CALCIUM 8.4 mg/dL (8.4-10.2); CREATININE, serum 0.99 mg/dL (0.57-1.11); POTASSIUM 4.3 mmol/L (3.5-4.5); TOTAL PROTEIN 5.6 gm/dL (6.2-8.1)
[2022-08-02 07:17] LABS: BAND 8 % (0-10); LYMPHOCYTE 6 % (20.0-51.0); NEUTROPHILS 81 % (42.0-75.2); PLATELET ESTIMATE NORMAL (NORMAL)
[2022-08-02 07:18] LABS: HYPOCHROMIA 1+
--- NOTE | 2022-08-02 12:43 | NUR ---
ONEL met with patients sister Lyric at bedside to complete intake. Patient resides at an independent home that is supported by [facility]. Per Lyric, patient is mostly nonverbal but is minimally able to communicate. Up until the patient was diagnosed with the flu approx. 1 month ago, the patient was able to ambulate with a walker, but has since had to utilize a wheelchair for mobility. She is currently getting in home therapy done through [facility]. PCP is and Lyric is unsure of what pharmacy the patient gets her medications through. ONEL found "Emergency Health Plan" documentation from [facility] on her chart stating that her sister Eusebia Dao is her legal guardian and payee.
--- NOTE | 2022-08-02 12:48 | NUR ---
SW informed that medical team to working on transferring the patient to [facility]. [facility]
--- NOTE | 2022-08-02 14:11 | NUR ---
1239 PT LEFT VIA EMS HEADED TO YANI OWUSU. REPORT GAVE TO [facility] NURSE.
== END 2022-08-02 12:39 | disposition short-term general hospital (02) | DRG 871 ==
LOC: COL.ER 09:12 → ICU 12:12
PROVIDERS: Emergency Medicine; Physician Assistant; ADMIT Hospitalist
PROC: 02H633Z Insertion of Infusion Device into Right Atrium, Percutaneous Approach (ICD-10-PCS; principal; 2022-08-01)
DX: A41.01 Sepsis due to Methicillin susceptible Staphylococcus aureus (principal); J96.01 Acute respiratory failure with hypoxia; R65.21 Severe sepsis with septic shock; I31.39 Other pericardial effusion (noninflammatory); J90 Pleural effusion, not elsewhere classified; N17.9 Acute kidney failure, unspecified; E27.40 Unspecified adrenocortical insufficiency; I95.9 Hypotension, unspecified; K76.1 Chronic passive congestion of liver; E87.5 Hyperkalemia; D64.9 Anemia, unspecified; G40.909 Epilepsy, unspecified, not intractable, without status epilepticus; E03.9 Hypothyroidism, unspecified; Z20.822 Contact with and (suspected) exposure to COVID-19; K21.9 Gastro-esophageal reflux disease without esophagitis; F32.A Depression, unspecified; K59.09 Other constipation; Z88.1 Allergy status to other antibiotic agents; Z88.2 Allergy status to sulfonamides; Z90.49 Acquired absence of other specified parts of digestive tract; Z79.890 Hormone replacement therapy; Z23 Encounter for immunization
CPT/HCPCS: C1751; J1720; J2543; J3370; J7050; J7060; J7120; Q9967

== ENCOUNTER 2022-09-27 09:42 | Emergency (ER) | payer MEDICARE, MEDICAID ==
[~2022-09-27 09:42] MED LIST changes: +CYANOCOBAL1000 MCG/M IM
[2022-09-27 10:01] VITALS: TEMP 96.3
[2022-09-27 12:25] VITALS: BP 98/64; PULSE 53
== END 2022-09-27 12:25 | disposition home or self-care (01) ==
LOC: COL.ER 09:42
DX: S30.0XXA Contusion of lower back and pelvis, initial encounter (principal); S00.93XA Contusion of unspecified part of head, initial encounter; W05.0XXA Fall from non-moving wheelchair, initial encounter; W20.8XXA Other cause of strike by thrown, projected or falling object, initial encounter

== ENCOUNTER 2023-02-19 10:15 | Outpatient (RCR) | payer MEDICARE, MEDICAID | END 2023-03-01 | disposition home or self-care (01) | LOC: MKS.ESL.PT | DX: G80.9 Cerebral palsy, unspecified (principal) ==

== ENCOUNTER 2023-05-13 13:46 | Inpatient (IN) | payer MEDICARE, MEDICAID ==
[~2023-05-13] VITALS: Ht 160 cm; Wt 77.7 kg
[2023-05-13] VITALS (296 sets, daily range): BP systolic 105–111; BP diastolic 66–81; PULSE 52–66; TEMP 91.6–94.4; O2SAT 91–100
[2023-05-13 14:20] LABS: HEMOGLOBIN 11.4 g/dl (12.5-16.0); MEAN CELL VOLUME 100 fl (80.0-100.0); MEAN CORPUSCULAR HEMOGLOBIN 31 pg (27-31); MEAN CORPUSCULAR HGB CONC 31 g/dl (33.0-37.0); PLATELET COUNT 91 K/mm3 (130-400); RED BLOOD COUNT 3.65 M/mm3 (4.10-5.30); REDCELL DISTRIBUTION WIDTH-CV 13.4 % (11.5-14.5)
[2023-05-13 14:21] LABS: HEMATOCRIT 36.5 % (37.0-47.0)
[2023-05-13 14:34] LABS: ALBUMIN 3.8 gm/dL (3.5-5.0); BILIRUBIN,TOTAL 0.2 mg/dL (0.2-1.2); CALCIUM 9.9 mg/dL (8.4-10.2); CREATININE, serum 1.61 mg/dL (0.57-1.11); TOTAL PROTEIN 7.7 gm/dL (6.2-8.1)
[2023-05-13 14:41] LABS: POTASSIUM 6.8 mmol/L (3.5-4.5)
[2023-05-13 14:54] LABS: COLLECTION METHOD CATHETER
[2023-05-13 14:58] LABS: BAND 10 % (0-10); BASOPHIL 1 % (0-2); EOSINOPHIL 1 % (0-4); LYMPHOCYTE 25 % (20.0-51.0); NEUTROPHILS 59 % (42.0-75.2)
[2023-05-13 15:01] LABS: HYPOCHROMIA 2+; PLATELET ESTIMATE DECREASED (NORMAL)
[2023-05-13 15:16] LABS: PH 5.5 (5.0-8.5); URINE APPEARANCE Clear (CLEAR/HAZY); URINE BLOOD TRACE-INTACT (NEGATIVE); URINE COLOR Yellow (YELLOW); URINE GLUCOSE Negative (NEGATIVE); URINE KETONE Negative (NEGATIVE); URINE NITRATE Negative (NEGATIVE); URINE PROTEIN(semi-quant) Negative (NEGATIVE); URINE UROBILINOGEN 0.2 E.U/dL (0.2-1.0)
[2023-05-13 15:49] LABS: SQUAMOUS EPITHELIAL None Seen /hpf (0-10); URINE BACTERIA None Seen /hpf (NONE SEEN); URINE RBC None Seen /hpf (0-2)
[2023-05-13] MEDS ORDERED: KLOR-CON20 MEQ PO (16:44)
[2023-05-13] MEDS ORDERED: MIRALAX119G PO (16:46)
[2023-05-13] MEDS ORDERED: FIBERCON (16:52)
[2023-05-13] MEDS ORDERED: SYNTHROID0.075 MG/T PO (16:54)
--- NOTE | 2023-05-13 18:00 | NUR ---
Patient arrived from the ED. Patient alert and oriented to self. Patient only able to communicate verbally with a few indivdual words. Patient not fully cooperative with cares. Requires frequent reorientation and encouragment from staff when providing cares. [facility] staff member at bedside to assist nursing staff with answering questions regarding patient's baseline. Upon assessment patient felt cool to touch; rectal temperature 91.6. Placed on a Brandon hugger at the "high" setting. Re-check potassium level 5.7. Hospitalist notified.
--- NOTE | 2023-05-13 22:06 | NUR ---
PT HAD NOT VOIDED. BLADDER SCAN SHOWED 645ML. PT VOIDED DURING SCAN. PURWICK DID NOT WORK. PT CLEANED AND NEW PURWICK PLACED. CAREGIVER AND PT'S SISTER AT BEDSIDE.
[2023-05-14] VITALS (650 sets, daily range): BP systolic 84–112; BP diastolic 60–90; PULSE 56–74; TEMP 96.7–99.3; O2SAT 75–98
[2023-05-14 05:47] LABS: BASO % 0.3 % (0.0-2.0); EOS % 0.6 % (0.0-4.0); GRAN # 2.7 K/mm3 (1.4-6.5); GRAN % 81.4 % (42.2-75.2); LYMPH # 0.4 K/mm3 (1.2-3.4); LYMPH % 12.9 % (20.0-51.0); MEAN CELL VOLUME 97 fl (80.0-100.0); MEAN CORPUSCULAR HGB CONC 33 g/dl (33.0-37.0); MEAN PLATELET VOLUME 13.4 fl (7.4-10.4); MONO # 0.1 K/mm3 (0.1-0.6); MONO % 4.2 % (1.7-9.3); PLATELET COUNT 84 K/mm3 (130-400); RED BLOOD COUNT 3.05 M/mm3 (4.10-5.30); REDCELL DISTRIBUTION WIDTH-CV 13.2 % (11.5-14.5)
[2023-05-14 05:53] LABS: HEMATOCRIT 29.5 % (37.0-47.0); HEMOGLOBIN 9.6 g/dl (12.5-16.0); MEAN CORPUSCULAR HEMOGLOBIN 31 pg (27-31)
[2023-05-14 06:03] LABS: CALCIUM 9.1 mg/dL (8.4-10.2); CREATININE, serum 1.59 mg/dL (0.57-1.11)
--- NOTE | 2023-05-14 07:03 | NUR ---
REMAINS STABLE ON ROUNDS. RESPERATIONS EVEN AND UNLABORED. NO SIGN OF DISTRESS AT THIS TIME. SISTER REMAINS AT BEDSIDE. KATIE RIOS WAS TURNE OFF WHEN PT BECAME NORMAL THERMIC. TEMP THIS AM IS NOW 36.4 C. WILL TURN BLANCA BACK ON.
--- NOTE | 2023-05-14 07:33 | NUR ---
RECEIVED REPORT FROM NIGHTSHIFT RNSWETHA. PATIENT RESTING IN BED WITH EYES CLOSED. PATIENT'S SISTER AT BEDSIDE. BED IN A LOW POSITION, CALL LIGHT WITHIN REACH.
--- NOTE | 2023-05-14 08:05 | NUR ---
HEAD TO TOE ASSESSMENT COMPLETED. PATIENT'S SISTER AT BEDSIDE ALONG WITH A Capture Media WORKER. PATIENT IS ALERT AND ABLE TO ANSWER YES/NO QUESTIONS. PATIENT DENIES PAIN AT THIS TIME. PUPILS ARE EQUAL AND REACTIVE. HEART SOUNDS REGULAR WITH S1 AND S2 NOTED. LUNG SOUNDS CLEAR BILATERALLY WITH DIMINISHED SOUNDS IN BASES BILATERALLY. BOWEL SOUNDS ACTIVE X4. PATIENT IS INCONTINENT OF URINE AND WEARS A BRIEF. BRUISING NOTED TO LOWER EXTREMITIES BILATERALLY FROM WHEEL CHAIR. PULSES EQUAL AND PRESENT BILATERALLY IN UPPER AND LOWER EXTREMITIES. PATIENT ABLE TO TAKE MEDS WHOLE IN APPLESAUCE. BREAKFAST ORDERED FOR PATIENT. CALL LIGHT WITHIN REACH OF PATIENT. BED IN A LOW POSITION.
--- NOTE | 2023-05-14 10:21 | NUR ---
alley worker met with patient and [facility] staff member. [facility] staff member indicated patient's sister, Eusebia, is her guardian. Patient is disabled and unable to verbalize answers to questions. SW contacted Eusebia to complete discharge planning. PCP is Dr. Smith and preferred pharmacy is [facility]. Patient has not had any issues affording medications with her insurance Medicare and [employer]. Patient has two guardians, Eusebia and Jennifer, both are her sisters. Eusebia expressed SW could obtain guardianship documentation from [facility]. Patient utilizes a wheelchair and is incontinent so she uses briefs. Patient needs total support with ADLS. Patient lives in a fdc in [place] with [facility] and they transport patient to and from appointments. Eusebia has no concerns at this time with patient returning home at time of discharge. SW attempted to contact [facility] [employer] to obtain guardianship documentation. SW will follow up. Discharge Plan: Return to [facility]
--- NOTE | 2023-05-14 10:42 | NUR ---
Initial visit; Patient appears to be somewhat mentally challenged though very sweet and kind and loved Carton Gluing Machine Operator talking with her and offering prayer. Kristin kissed Carton Gluing Machine Operator's arm and hand following prayer and appeared to say "thank you." It was a blessing for Carton Gluing Machine Operator to transferrer to Kristin.
[2023-05-14] MEDS ORDERED: LEXAPRO20 MG PO (12:02)
[2023-05-14] MEDS ORDERED: TYLENOL 325MG325 MG PO (13:54)
--- NOTE | 2023-05-15 14:02 | NUR ---
ONEL Student faxed discharge orders to [facility].
== END 2023-05-14 16:00 | disposition home or self-care (01) | DRG 640 ==
LOC: COL.ER 13:46 → ICU 15:53
PROVIDERS: Family Medicine; ADMIT Internal Medicine
DX: E87.5 Hyperkalemia (principal); N17.0 Acute kidney failure with tubular necrosis; E27.40 Unspecified adrenocortical insufficiency; E03.9 Hypothyroidism, unspecified; K21.9 Gastro-esophageal reflux disease without esophagitis; F32.A Depression, unspecified; F41.9 Anxiety disorder, unspecified; G47.00 Insomnia, unspecified; D69.6 Thrombocytopenia, unspecified; R00.1 Bradycardia, unspecified; G80.9 Cerebral palsy, unspecified; I44.0 Atrioventricular block, first degree; T50.3X5A Adverse effect of electrolytic, caloric and water-balance agents, initial encounter; T50.2X5A Adverse effect of carbonic-anhydrase inhibitors, benzothiadiazides and other diuretics, initial encounter; E86.0 Dehydration; T39.395A Adverse effect of other nonsteroidal anti-inflammatory drugs [NSAID], initial encounter; Z90.49 Acquired absence of other specified parts of digestive tract; Z88.1 Allergy status to other antibiotic agents; Z88.2 Allergy status to sulfonamides; Z79.899 Other long term (current) drug therapy; Z79.890 Hormone replacement therapy; Q24.9 Congenital malformation of heart, unspecified; Z23 Encounter for immunization
CPT/HCPCS: A9270; G0378; J0612; J1720; J1815; J1940

== ENCOUNTER 2023-09-13 14:35 | Emergency (ER) | payer MEDICARE, MEDICAID ==
[~2023-09-13] VITALS: Ht 165.1 cm; Wt 81.1 kg
[~2023-09-13 14:35] MED LIST changes: +KLOR-CON20 MEQ PO; +LEXAPRO20 MG PO; +MIRALAX119G PO; +SYNTHROID0.075 MG/T PO; +TYLENOL 325MG325 MG PO
[2023-09-13 14:55] LABS: BASO % 0.3 % (0.0-2.0); EOS % 1.1 % (0.0-4.0); GRAN # 2.8 K/mm3 (1.4-6.5); GRAN % 75.8 % (42.2-75.2); HEMOGLOBIN 11.5 g/dl (12.5-16.0); LYMPH # 0.6 K/mm3 (1.2-3.4); LYMPH % 17.3 % (20.0-51.0); MEAN CELL VOLUME 99 fl (80.0-100.0); MEAN CORPUSCULAR HEMOGLOBIN 31 pg (27-31); MEAN CORPUSCULAR HGB CONC 31 g/dl (33.0-37.0); MEAN PLATELET VOLUME 12.7 fl (7.4-10.4); MONO # 0.2 K/mm3 (0.1-0.6); MONO % 4.7 % (1.7-9.3); PLATELET COUNT 113 K/mm3 (130-400); RED BLOOD COUNT 3.71 M/mm3 (4.10-5.30); REDCELL DISTRIBUTION WIDTH-CV 13.5 % (11.5-14.5)
[2023-09-13 14:59] LABS: HEMATOCRIT 36.6 % (37.0-47.0)
[2023-09-13 15:04] LABS: COLLECTION METHOD CATHETER
[2023-09-13 15:07] LABS: URINE APPEARANCE CLEAR (CLEAR/HAZY); URINE BLOOD NEGATIVE (NEGATIVE); URINE COLOR YELLOW (YELLOW); URINE GLUCOSE NEGATIVE (NEGATIVE); URINE KETONE NEGATIVE (NEGATIVE); URINE NITRATE NEGATIVE (NEGATIVE); URINE PROTEIN(semi-quant) NEGATIVE (NEGATIVE); URINE UROBILINOGEN 0.2 E.U/dL (0.2-1.0)
[2023-09-13 15:10] LABS: ALBUMIN 3.5 g/dL (3.5-5.0); BILIRUBIN,TOTAL 0.3 mg/dL (0.2-1.2); CALCIUM 9.8 mg/dL (8.4-10.2); CREATININE, serum 1.04 mg/dL (0.57-1.11); TOTAL PROTEIN 7.1 g/dl (6.2-8.1)
[2023-09-13 15:12] LABS: POTASSIUM 6.2 mEq/L (3.5-4.5)
[2023-09-13 15:30] LABS: TSH w REFLEX 0.722 uIU/mL (0.350-4.940)
[2023-09-13] MEDS ORDERED: Insulin Regular Human (NovoLIN R/HumuLIN R) IV ONE (15:30)
[2023-09-13] MEDS ORDERED: Dextrose 50% Water 25 GM/50 ML SYRINGE IV ONE (15:30)
[2023-09-13 17:03] VITALS: TEMP 92.2
[2023-09-13 17:13] LABS: ARTERIAL BLD GAS TCO2 CT 26.4; ARTERIAL BLOOD GAS BASE EXCESS -2.5 (-2-2); ARTERIAL BLOOD GAS HCO3 24.7 meq/L (22-26); ARTERIAL BLOOD GAS PCO2 53.8 mmHg (35-45); ARTERIAL BLOOD GAS pH 7.28 (7.35-7.45)
[2023-09-13 17:14] LABS: ARTERIAL BLOOD GAS PO2 134.9 mmHg (80-100)
[2023-09-13] MEDS ORDERED: Rocuronium 50 MG/5 ML Multi-Dose VIAL IV ONE (17:48)
[2023-09-13] MEDS ORDERED: Midazolam 100 ML IV ONE (17:50)
[2023-09-13] MEDS ORDERED: fentaNYL 50 MCG/ML 2 ML VIAL IV ONE (17:51)
[2023-09-13] MEDS ORDERED: Iohexol 350 - 100 ML VIAL IV ONE (18:40)
[2023-09-13] MEDS ORDERED: EPINEPHrine 2 MG in D5W 100 ML IV ONE (18:45)
[2023-09-13 18:55] VITALS: BP 153/80; PULSE 70
== END 2023-09-13 19:33 | disposition short-term general hospital (02) ==
LOC: COL.ER 14:35
PROVIDERS: Emergency Medicine
DX: E87.5 Hyperkalemia (principal); J96.90 Respiratory failure, unspecified, unspecified whether with hypoxia or hypercapnia; R57.9 Shock, unspecified; S80.12XA Contusion of left lower leg, initial encounter; I44.2 Atrioventricular block, complete; R41.82 Altered mental status, unspecified; W19.XXXA Unspecified fall, initial encounter
CPT/HCPCS: J0171; J0612; J1720; J1815; J2251; J2543; J3010; J7060; Q9967

== ENCOUNTER 2024-01-06 13:16 | Emergency (ER) | payer MEDICARE, MEDICAID ==
[2024-01-06 13:27] VITALS: BP 111/66; PULSE 60; TEMP 97.1
== END 2024-01-06 15:24 | disposition home or self-care (01) ==
LOC: COL.ER 13:16
DX: T76.21XA Adult sexual abuse, suspected, initial encounter (principal)